=== PATIENT | male | born 2000 | race Two or more races ===

== ENCOUNTER 2021-01-23 23:17 | Emergency (ER) | payer OTHER ==
[~2021-01-23] VITALS: Ht 190.5 cm; Wt 100.0 kg
[2021-01-23 23:23] VITALS: BP 126/71
[2021-01-23] MEDS ORDERED: LIDOCAINE 1% 10 ML VIAL ID ONE (23:45)
== END 2021-01-24 00:46 | disposition home or self-care (01) ==
LOC: EMS 23:23
DX: L60.0 Ingrowing nail (principal)
CPT/HCPCS: 10060; 99283; J3490

== ENCOUNTER 2021-08-05 08:02 | Emergency (ER) | payer OTHER ==
[~2021-08-05] VITALS: Ht 190.5 cm; Wt 127.3 kg
[2021-08-05] MEDS ORDERED: ACETAMINOPHEN/CODEINE 300-30 MG TABLET PO ONE (10:00)
[2021-08-05] MEDS ORDERED: METHOCARBAMOL 100 MG/ML 10 ML VIAL IVP ONE (10:00)
[2021-08-05] MEDS ORDERED: KETOROLAC TROMETHAMINE 30 MG/ML VIAL IVP ONE (10:00)
[2021-08-05] MEDS ORDERED: LORazepam 2 MG/ML VIAL IVP ONE (10:00)
[2021-08-05 10:07] LABS: BASOPHILS % (AUTO) 1.9 % (0.0-2.0); EOSINOPHILS % (AUTO) 3.2 % (1.0-6.0); HEMATOCRIT 44.9 % (41-53); HEMOGLOBIN 14.9 g/dL (13.5-17.5); LYMPHOCYTES # (AUTO) 1.3 K/uL (1.0-4.8); LYMPHOCYTES % (AUTO) 32.1 % (22.0-44.0); MEAN CORPUSCULAR HEMOGLOBIN 26.9 pg (26.0-34.0); MEAN CORPUSCULAR HGB CONC 33.3 G/dL (31.0-37.0); MEAN CORPUSCULAR VOLUME 81 fL (80-100); MONOCYTES # (AUTO) 0.4 K/uL (0.1-1.0); MONOCYTES % (AUTO) 8.7 % (2.0-9.0); NEUTROPHILS # (AUTO) 2.2 K/uL (1.8-7.7); NEUTROPHILS % (AUTO) 54.1 % (40.0-70.0); PLATELET COUNT (AUTO) 189 K/uL (150-450); RED BLOOD CELL COUNT(AUTO) 5.55 MIL/uL (4.50-5.90); RED CELL DISTRIBUTION WIDTH 13.4 % (11.5-14.5)
[2021-08-05 10:18] LABS: ANION GAP 8 mmol/L (8-16); CALCIUM, TOTAL 8.9 mg/dL (8.8-10.5); CARBON DIOXIDE 30 mmol/L (22-29); CHLORIDE 102 mmol/L (98-107); CREATININE 0.66 mg/dL (0.60-1.30); GLOMERULAR FILTR. RATE CALC > 60 mL/min (>60); GLUCOSE,RANDOM 99 mg/dL (70-110); POTASSIUM 3.8 mmol/L (3.5-5.1); SODIUM SERUM 140 mmol/L (136-145); UREA NITROGEN, BLOOD 9 mg/dL (7-18)
[2021-08-05 10:23] LABS: ALANINE AMINOTRANSFERASE 222 U/L (12-78); ALBUMIN 3.8 g/dL (3.4-5.0); ALKALINE PHOSPHATASE 104 U/L (46-116); ASPARTATE AMINOTRANSFERASE 90 U/L (15-37); BILIRUBIN,TOTAL 0.7 mg/dL (0.1-1.0); TOTAL PROTEIN, SERUM 7.2 g/dL (6.4-8.2)
[2021-08-05] MEDS ORDERED: KETOROLAC TROMETHAMINE 60 MG/2 ML VIAL IM ONE (11:30)
[2021-08-05] MEDS ORDERED: LORazepam 1 MG TABLET PO ONE (11:30)
[2021-08-05] MEDS ORDERED: METHOCARBAMOL 500 MG TABLET PO ONE (11:30)
[2021-08-05 11:38] VITALS: BP 132/93
[2021-08-05] MEDS ORDERED: ACET-2080 PO (13:04)
[2021-08-05] MEDS ORDERED: IBUP-1554 PO (13:04)
[2021-08-05] MEDS ORDERED: BACL10TA PO (13:04)
== END 2021-08-05 13:42 | disposition home or self-care (01) ==
LOC: EMS 08:05
DX: S13.4XXA Sprain of ligaments of cervical spine, initial encounter (principal); R79.89 Other specified abnormal findings of blood chemistry; X50.1XXA Overexertion from prolonged static or awkward postures, initial encounter; Y93.89 Activity, other specified; Y92.89 Other specified places as the place of occurrence of the external cause; Y99.8 Other external cause status
CPT/HCPCS: 36415; 80053; 85025; 96372; 99284; J1885